=== PATIENT | male | born 1955 | race Caucasian/White ===

== ENCOUNTER 2017-11-28 11:21 | Day surgery (SDC) | payer OTHER ==
[~2017-11-28] VITALS: Ht 185.4 cm; Wt 93.2 kg
[~2017-11-28 11:21] MED LIST: Mobic15 MG; PHENY100ER; TAMS.4ER; VENL150ER; VENL75ER; ZOLP5
== END 2017-11-28 14:40 | disposition home or self-care (01) ==
LOC: ORSCSDS 11:21
PROVIDERS: Internal Medicine Gastroenterology
PROC: 0DBN8ZX Excision of Sigmoid Colon, Via Natural or Artificial Opening Endoscopic, Diagnostic (ICD-10-PCS; principal; 2017-11-28 12:45)
PROC: 0DBM8ZX Excision of Descending Colon, Via Natural or Artificial Opening Endoscopic, Diagnostic (ICD-10-PCS; principal; 2017-11-28 12:45)
PROC: 0DBK8ZX Excision of Ascending Colon, Via Natural or Artificial Opening Endoscopic, Diagnostic (ICD-10-PCS; principal; 2017-11-28 12:45)
PROC: 0DBP8ZX Excision of Rectum, Via Natural or Artificial Opening Endoscopic, Diagnostic (ICD-10-PCS; principal; 2017-11-28 12:45)
PROC: 0DBL8ZX Excision of Transverse Colon, Via Natural or Artificial Opening Endoscopic, Diagnostic (ICD-10-PCS; principal; 2017-11-28 12:45)
DX: Z12.11 Encounter for screening for malignant neoplasm of colon (principal); D12.2 Benign neoplasm of ascending colon; D12.3 Benign neoplasm of transverse colon; D12.4 Benign neoplasm of descending colon; K63.5 Polyp of colon; K62.1 Rectal polyp; K64.8 Other hemorrhoids; Z86.73 Personal history of transient ischemic attack (TIA), and cerebral infarction without residual deficits; F32.9 Major depressive disorder, single episode, unspecified; F17.210 Nicotine dependence, cigarettes, uncomplicated; Z79.899 Other long term (current) drug therapy
CPT/HCPCS: 88305; J1980; J7040; J7120

== ENCOUNTER 2018-09-06 17:43 | Observation (INO) | payer OTHER ==
[~2018-09-06] VITALS: Ht 188 cm; Wt 100.7 kg
[~2018-09-06 17:43] MED LIST changes: -TAMS.4ER; +TAMS.4ER PO
[2018-09-06 18:21] LABS: BASOPHILS ABSOLUTE AUTO 0.06 K/mm3 (0.00-0.23); BASOPHILS PERCENT AUTO 1 % (0-2); EOSINOPHILS ABSOLUTE AUTO 0.32 K/mm3 (0.00-0.68); EOSINOPHILS PERCENT AUTO 4 % (0-6); Hematocrit 43.5 % (37.0-53.0); Hemoglobin 14.8 g/dL (13.5-17.5); IMMATURE GRAN ABSOLUTE AUTO 0.02 K/mm3 (0.00-0.10); IMMATURE GRAN PERCENT AUTO 0 % (0-1); LYMPHOCYTES ABSOLUTE AUTO 3.14 K/mm3 (0.84-5.20); LYMPHOCYTES PERCENT AUTO 40 % (21-46); MONOCYTES ABSOLUTE AUTO 0.61 K/mm3 (0.16-1.47); MONOCYTES PERCENT AUTO 8 % (4-13); Mean Corpuscular HGB 31.7 pg (26.0-34.0); Mean Corpuscular Volume 93 fL (80-100); Mean Platelet Volume 10.4 fL (9.1-12.4); NEUTROPHILS ABSOLUTE AUTO 3.71 K/mm3 (1.96-9.15); NEUTROPHILS PERCENT AUTO 47 % (41-73); Platelet Count 327 K/mm3 (150-400); RDW Coefficient Variation 11.9 % (11.7-14.2); RDW Standard Deviation 40.8 fL (35.1-46.3); Red Blood Cell Count 4.67 M/mm3 (4.30-5.90); White Blood Cell Count 7.86 K/mm3 (4.00-11.30)
[2018-09-06 18:47] LABS: Alanine Aminotransfer (ALT/SGP 84 U/L (12-78); Albumin, Blood 3.8 g/dL (3.4-5.0); Albumin/Globulin Ratio 0.9 (0.8-1.8); Alk Phos 87 U/L (50-136); Anion Gap 9 mmol/L (6-16); Aspartate Aminotrans (AST/SGOT 49 U/L (12-37); Bilirubin, Total 0.3 mg/dL (0.1-1.0); Blood Urea Nitrogen 10 mg/dL (8-24); Bun/Creatinine Ratio 9.6 (12.0-20.0); CO2, Blood 20 mmol/L (21-32); Calcium, Blood 8.7 mg/dL (8.5-10.1); Chloride, Blood 108 mmol/L (98-108); Creatinine, Blood 1.04 mg/dL (0.60-1.20); Globulin, Blood 4.1 g/dL (2.2-4.0); Glomerular Filtration Rate >60 (60-); Glucose, Blood 96 mg/dL (70-99); Sodium, Blood 137 mmol/L (136-145); Total Protein, Blood 7.9 g/dL (6.4-8.2); Troponin I <0.015 ng/mL (0.000-0.040)
[2018-09-06] MEDS ORDERED: BACL10 PO (21:37)
[2018-09-06 23:00] LABS: D-Dimer, Quantitative 0.19 mg/L FEU (0.00-0.52); International Normalized Ratio 1.03; Prothrombin Time Results 10.9 Sec (9.7-11.5)
[2018-09-07 00:36] LABS: U Amphetamine Screen Not Detected; U Barbituate Screen Not Detected; U Benzodiazapine Screen Not Detected; U Buprenorphine Screen Not Detected; U Cannabinoids Screen Not Detected; U Cocaine Screen Not Detected; U Methadone Screen Not Detected; U Methamphetamine Screen Not Detected; U Opiates Screen DETECTED; U Oxycodone Screen Not Detected; U Phencyclidine Screen Not Detected; U Propoxyphene Screen Not Detected
[2018-09-07 05:37] LABS: Hematocrit 40.4 % (37.0-53.0); Hemoglobin 13.8 g/dL (13.5-17.5); Mean Corpuscular HGB 31.5 pg (26.0-34.0); Mean Corpuscular HGB Conc 34.2 g/dL (31.5-36.5); Mean Corpuscular Volume 92 fL (80-100); Mean Platelet Volume 10.5 fL (9.1-12.4); Platelet Count 276 K/mm3 (150-400); RDW Coefficient Variation 12.2 % (11.7-14.2); Red Blood Cell Count 4.38 M/mm3 (4.30-5.90); White Blood Cell Count 9.23 K/mm3 (4.00-11.30)
[2018-09-07 06:06] LABS: Alanine Aminotransfer (ALT/SGP 76 U/L (12-78); Albumin, Blood 3.5 g/dL (3.4-5.0); Alk Phos 79 U/L (50-136); Anion Gap 6 mmol/L (6-16); Aspartate Aminotrans (AST/SGOT 39 U/L (12-37); Bilirubin, Total 0.9 mg/dL (0.1-1.0); Blood Urea Nitrogen 13 mg/dL (8-24); Bun/Creatinine Ratio 13.2 (12.0-20.0); CO2, Blood 24 mmol/L (21-32); Calcium, Blood 8.4 mg/dL (8.5-10.1); Chloride, Blood 108 mmol/L (98-108); Creatinine, Blood 0.99 mg/dL (0.60-1.20); Globulin, Blood 3.6 g/dL (2.2-4.0); Glomerular Filtration Rate >60 (60-); Glucose, Blood 93 mg/dL (70-99); Potassium, Blood 3.7 mmol/L (3.5-5.5); Sodium, Blood 138 mmol/L (136-145); Total Protein, Blood 7.1 g/dL (6.4-8.2)
--- NOTE | 2018-09-07 06:09 | NUR ---
SHIFT SUMMARY PT NEW ADMIT THIS SHIFT. AAOX4. DISCOMFORT TO LUE CONTROLLED WITH X1 25mcg FENTANYL. NO NAUSEA/EMESIS. HEPARIN GTT STARTED PER PHARMACY, AWAITING PTT RESULTS THIS AM. PT SBA UP IN ROOM TO AMBULATE. ORIENTED TO ROOM + CALL LIGHT USE.
--- NOTE | 2018-09-07 08:35 | NUR ---
ECHO REPORTED TO BE COMPLETE.
--- NOTE | 2018-09-07 08:49 | NUR ---
DR ROSS HERE TO SEE PT.
--- NOTE | 2018-09-07 11:23 | NUR ---
ECHOCARDIOGRAM COMPLETED
--- NOTE | 2018-09-07 14:19 | NUR ---
RECENTLY DISCUSSED HEPARIN GTT WITH PHARMACY, RATE CHANGED PER ORDER.
--- NOTE | 2018-09-07 17:08 | NUR ---
PT TO BATHROOM AND BACK TO BED ON HIS OWN. PT BACK IN BED RESTING AT THIS TIME.
--- NOTE | 2018-09-07 18:08 | NUR ---
SHIFT SUMMARY PT A/O. EATING / DRINKING WELL. VOIDING ON OWN IN BATHROOM. UP IND. ASSISTED WITH ADL'S PRN. MEDICATED FOR PAIN PRN. FAMILY IN TO SEE PT TODAY.
--- NOTE | 2018-09-07 18:50 | NUR ---
HEPARIN DC'D AT THIS TIME PER ORDER. SALINE LOCKED.
--- NOTE | 2018-09-08 00:15 | NUR ---
PT GOING TO IMAGING VIA HWEELCHAIR FOR ORDERED CHEST CT WITH CONTRAST.
--- NOTE | 2018-09-08 04:51 | NUR ---
SHIFT SUMMARY: PT HAS DONE WELL THIS SHIFT. DENIES CP AND SOB. TELE SHOWS NSR. HELD SCHED METOPROLOL FOR HR LESS THAN 60. NEW IV IN RIGHT UPPER ARM. PT TAKEN TO IMAGING FOR CHEST CT WITH CONTRAST TO R/O PE. CONTINUOUS HEPARIN INFUSING. GIVEN ULTRAM AND FENTANYL FOR PAIN. PLAN FOR MRI OF RIGHT SHOULDER THIS AM.
[2018-09-08 05:04] LABS: Hematocrit 40.5 % (37.0-53.0); Hemoglobin 13.6 g/dL (13.5-17.5); Mean Corpuscular HGB 31.3 pg (26.0-34.0); Mean Corpuscular HGB Conc 33.6 g/dL (31.5-36.5); Mean Corpuscular Volume 93 fL (80-100); Mean Platelet Volume 10.8 fL (9.1-12.4); Platelet Count 277 K/mm3 (150-400); RDW Standard Deviation 41.8 fL (35.1-46.3); Red Blood Cell Count 4.34 M/mm3 (4.30-5.90); White Blood Cell Count 7.19 K/mm3 (4.00-11.30)
[2018-09-08 05:35] LABS: Albumin, Blood 3.3 g/dL (3.4-5.0); Anion Gap 6 mmol/L (6-16); Blood Urea Nitrogen 17 mg/dL (8-24); Bun/Creatinine Ratio 16.8 (12.0-20.0); CO2, Blood 25 mmol/L (21-32); Calcium, Blood 8.7 mg/dL (8.5-10.1); Chloride, Blood 109 mmol/L (98-108); Creatinine, Blood 1.01 mg/dL (0.60-1.20); Glomerular Filtration Rate >60 (60-); Glucose, Blood 96 mg/dL (70-99); Phosphorus, Blood 4.2 mg/dL (2.5-4.9); Potassium, Blood 4.3 mmol/L (3.5-5.5); Sodium, Blood 140 mmol/L (136-145)
--- NOTE | 2018-09-08 18:16 | NUR ---
SHIFT SUMMARY PT HAS DONE WELL TODAY. MRI COMPLETED. HEPARIN DRIP D/C'D. 1ST PART OF STRESS TEST COMPLETED. PLAN FOR 2ND PART TOMORROW AFTERNOON. PT HAS NOT C/O CP TODAY BUT DOES /O SIGNIFICANT PAIN IN RUE/SHOULDER. ORTHO MD INTO SEE PT TO DISCUSS MRI RESULTS. PLAN TO WORK WITH THERAPY TOMORROW.
--- NOTE | 2018-09-08 22:50 | NUR ---
HELD LOPRESSOR TONIGHT DUE TO HEART RATE OF 53 PER TELE.I CALLED HOSPITALIST [facility]OM[facility] TO CONFIRM IF HE WANTED IT HELD TONIGHT.DISCUSSED VS AND TROP. CONFIRMED HE WANTS LOPRESSOR HELD TONIGHT.
[2018-09-09 05:31] LABS: Albumin, Blood 3.4 g/dL (3.4-5.0); Anion Gap 6 mmol/L (6-16); Blood Urea Nitrogen 16 mg/dL (8-24); Bun/Creatinine Ratio 17.7 (12.0-20.0); CO2, Blood 24 mmol/L (21-32); Calcium, Blood 8.8 mg/dL (8.5-10.1); Chloride, Blood 107 mmol/L (98-108); Glomerular Filtration Rate >60 (60-); Glucose, Blood 86 mg/dL (70-99); Phosphorus, Blood 3.9 mg/dL (2.5-4.9); Potassium, Blood 4.2 mmol/L (3.5-5.5); Sodium, Blood 137 mmol/L (136-145)
--- NOTE | 2018-09-09 07:35 | NUR ---
SUMMARY PT PENDING SECOND HALF OF STRESS TEST TODAY. NO C/O CHEST PAIN LAST NIGHT. MOST OF PT CONCERN IS WITH R ROTATOR CUFF WILL BE FOLLOWING WITH DR DE LA ROSA IN 14 DAYS AND PT IS R HANDED.
[2018-09-09] MEDS ORDERED: MELATONIN5 M1 PO (18:41)
[2018-09-09] MEDS ORDERED: PANT20 PO (18:41)
[2018-09-09] MEDS ORDERED: SERT25 PO (18:42)
[2018-09-09] MEDS ORDERED: TRAM50 PO (18:42)
[2018-09-09] MEDS ORDERED: DOCU100 PO (18:43)
--- NOTE | 2018-09-09 19:01 | NUR ---
[facility] CALLED TO SAVE ON IN BYERS PER PT REQUEST. PAIN WELL CONTROLLED, CLEARED THERAPY, STRESS TEST WNL. SCRIPT FOR ULTRAM GIVEN.
== END 2018-09-09 19:20 | disposition home or self-care (01) ==
LOC: ER 17:43 → SURS 17:44 → EDBEDREQ 22:11 → SURS 22:20
PROVIDERS: Internal Medicine; Physician Assistant; ADMIT Internal Medicine
DX: K20.9 Esophagitis, unspecified (principal); S46.011A Strain of muscle(s) and tendon(s) of the rotator cuff of right shoulder, initial encounter; M19.011 Primary osteoarthritis, right shoulder; R55 Syncope and collapse; G47.00 Insomnia, unspecified; F32.9 Major depressive disorder, single episode, unspecified; M54.9 Dorsalgia, unspecified; G89.29 Other chronic pain; Z79.899 Other long term (current) drug therapy; Z63.4 Disappearance and death of family member; X50.9XXA Other and unspecified overexertion or strenuous movements or postures, initial encounter
CPT/HCPCS: 36415; 71046; 71260; 73030; 73221; 78452; 80053; 80069; 83880; 84484; 85025; 85027; 85379; 85610; 85730; 93005; 93010; 93017; 93306; 96374; 96375; 96376; 97110; 97162; 97530; 99285-25; A9500; G0378; J0280; J1644; J1885; J2270; J2785; J3010; J7040; Q9967

== ENCOUNTER 2018-10-29 06:20 | Day surgery (SDC) | payer OTHER ==
[~2018-10-29] VITALS: Ht 185.4 cm; Wt 105.0 kg
[~2018-10-29 06:20] MED LIST changes: +BACL10 PO; +DOCU100 PO; +MELATONIN5 M1 PO; +PANT20 PO; +SERT25 PO; +TRAM50 PO
[2018-10-29] MEDS ORDERED: ASPI81CH PO (06:39)
[2018-10-29] MEDS ORDERED: METO25ER PO (06:39)
--- NOTE | 2018-10-29 11:37 | NUR ---
Pt preparing to go home stable, pt with tr-band removed, dot cloth appied at 1130. Reviewed pt medication and discharge instructions.
--- NOTE | 2018-10-29 11:54 | NUR ---
1150 Pt d/c home with daughter. Pt a/o with decrease pain in right shoulder. Pt with no site pain on right radial. Pt stable for d/c home.
== END 2018-10-29 11:50 | disposition home or self-care (01) ==
LOC: MHTC 06:20
DX: I25.110 Atherosclerotic heart disease of native coronary artery with unstable angina pectoris (principal); I25.2 Old myocardial infarction; J44.9 Chronic obstructive pulmonary disease, unspecified; F32.9 Major depressive disorder, single episode, unspecified; F41.9 Anxiety disorder, unspecified; F17.210 Nicotine dependence, cigarettes, uncomplicated; E66.9 Obesity, unspecified; Z86.73 Personal history of transient ischemic attack (TIA), and cerebral infarction without residual deficits; Z79.899 Other long term (current) drug therapy; Z79.82 Long term (current) use of aspirin
CPT/HCPCS: 93454; 99152; 99153; C1769; C1894; J1644; J2250; J3010; J7030; Q9967

== ENCOUNTER 2019-01-11 11:59 | Emergency (ER) | payer OTHER ==
[~2019-01-11] VITALS: Ht 185.4 cm; Wt 104.3 kg
[~2019-01-11 11:59] MED LIST changes: +ASPI81CH PO; +METO25ER PO
== END 2019-01-11 13:47 | disposition home or self-care (01) ==
LOC: ER 11:59
DX: S61.212A Laceration without foreign body of right middle finger without damage to nail, initial encounter (principal); W22.8XXA Striking against or struck by other objects, initial encounter; Z79.899 Other long term (current) drug therapy; Z79.82 Long term (current) use of aspirin; F32.9 Major depressive disorder, single episode, unspecified; Z86.73 Personal history of transient ischemic attack (TIA), and cerebral infarction without residual deficits; G47.00 Insomnia, unspecified; F17.200 Nicotine dependence, unspecified, uncomplicated
CPT/HCPCS: 12002; 73140; 99282-25

== ENCOUNTER 2024-01-23 23:13 | Emergency (ER) | payer OTHER ==
[~2024-01-23] VITALS: Ht 185.4 cm; Wt 102.1 kg
[2024-01-24] MEDS ORDERED: Dexamethasone Sod Phos 10 MG/ML 1ML VIAL IV ONE (01:00)
[2024-01-24] MEDS ORDERED: Ketorolac Tromethamine 30mg Vial IV ONE (01:00)
[2024-01-24 01:17] LABS: BASOPHILS PERCENT AUTO 1 % (0-2); EOSINOPHILS ABSOLUTE AUTO 0.37 K/mm3 (0.00-0.68); EOSINOPHILS PERCENT AUTO 5 % (0-6); Hematocrit 45.9 % (37.0-53.0); IMMATURE GRAN ABSOLUTE AUTO 0.01 K/mm3 (0.00-0.10); IMMATURE GRAN PERCENT AUTO 0 % (0-1); LYMPHOCYTES ABSOLUTE AUTO 3.68 K/mm3 (0.84-5.20); LYMPHOCYTES PERCENT AUTO 45 % (21-46); MONOCYTES ABSOLUTE AUTO 0.64 K/mm3 (0.16-1.47); MONOCYTES PERCENT AUTO 8 % (4-13); Mean Corpuscular HGB 30.9 pg (26.0-34.0); Mean Corpuscular HGB Conc 34.9 g/dL (31.5-36.5); Mean Corpuscular Volume 89 fL (80-100); Mean Platelet Volume 9.4 fL (9.1-12.4); NEUTROPHILS ABSOLUTE AUTO 3.32 K/mm3 (1.96-9.15); NEUTROPHILS PERCENT AUTO 41 % (41-73); Platelet Count 434 K/mm3 (150-400); RDW Coefficient Variation 12.4 % (11.7-14.2); RDW Standard Deviation 40.4 fL (35.1-46.3); Red Blood Cell Count 5.18 M/mm3 (4.30-5.90); White Blood Cell Count 8.12 K/mm3 (4.00-11.30)
[2024-01-24 04:13] LABS: Albumin, Blood 3.5 g/dL (3.4-5.0); Bilirubin, Total 0.2 mg/dL (0.1-1.0); Bun/Creatinine Ratio 9.6 (12.0-20.0); Calcium, Blood 9.1 mg/dL (8.5-10.1); Creatinine, Blood 0.93 mg/dL (0.60-1.20); Globulin, Blood 3.5 g/dL (2.2-4.0); Potassium, Blood 3.5 mmol/L (3.5-5.5)
[2024-01-24 13:27] VITALS: BP 159/94
[2024-01-24] MEDS ORDERED: Acetaminophen 325 MG TABLET PO ONE (14:20)
[2024-01-24 14:32] LABS: Source, Urine Clean Catch
[2024-01-24 14:40] LABS: Appearance, Urine Clear (Clear); Bilirubin, Urine Neg (Neg); Blood, Urine Neg (Neg); Color, Urine Yellow (P-Yellow); Glucose Qualitative, Urine Neg (Neg); Ketones, Urine Neg (Neg); Leukocyte Esterase, Urine Neg (Neg); Nitrite, Urine Neg (Neg); Protein, Urine 2+ (Neg); Urobilinogen, Urine 1+ (Normal)
[2024-01-24 14:48] LABS: Amorphous Light (0-Heavy); Bacteria Rare /hpf; Red Blood Cells, Urine Not Seen /hpf (0-2); Squamous Epithelial Cells Rare /hpf (Few); White Blood Cells, Urine Not Seen /hpf (0-5)
== END 2024-01-24 16:26 | disposition home or self-care (01) ==
LOC: ER 23:13
PROVIDERS: Emergency Medicine; Student in an Organized Health Care Education/Training Program
DX: S32.019A Unspecified fracture of first lumbar vertebra, initial encounter for closed fracture (principal); R32 Unspecified urinary incontinence; M54.16 Radiculopathy, lumbar region; N50.812 Left testicular pain; F17.200 Nicotine dependence, unspecified, uncomplicated; W01.0XXA Fall on same level from slipping, tripping and stumbling without subsequent striking against object, initial encounter; Z79.82 Long term (current) use of aspirin; Z79.899 Other long term (current) drug therapy
CPT/HCPCS: 51798; 72158; 74177; 76870; 80053; 81001; 85025; 96374; 96375; 99284-25; A9270; A9579; J1100; J1885; Q9967

== ENCOUNTER 2024-09-25 09:25 | Emergency (ER) | payer MEDICARE, OTHER ==
[~2024-09-25] VITALS: Ht 188 cm; Wt 86.2 kg
[2024-09-25 09:56] LABS: BASOPHILS ABSOLUTE AUTO 0.16 K/mm3 (0.00-0.23); BASOPHILS PERCENT AUTO 2 % (0-2); EOSINOPHILS ABSOLUTE AUTO 0.54 K/mm3 (0.00-0.68); EOSINOPHILS PERCENT AUTO 5 % (0-6); Hematocrit 41.6 % (37.0-53.0); Hemoglobin 14.4 g/dL (13.5-17.5); IMMATURE GRAN ABSOLUTE AUTO 0.06 K/mm3 (0.00-0.10); IMMATURE GRAN PERCENT AUTO 1 % (0-1); LYMPHOCYTES ABSOLUTE AUTO 3.93 K/mm3 (0.84-5.20); LYMPHOCYTES PERCENT AUTO 36 % (21-46); MONOCYTES PERCENT AUTO 8 % (4-13); Mean Corpuscular HGB 30.8 pg (26.0-34.0); Mean Corpuscular HGB Conc 34.6 g/dL (31.5-36.5); Mean Corpuscular Volume 89 fL (80-100); Mean Platelet Volume 9.6 fL (9.1-12.4); NEUTROPHILS ABSOLUTE AUTO 5.26 K/mm3 (1.96-9.15); NEUTROPHILS PERCENT AUTO 48 % (41-73); Platelet Count 481 K/mm3 (150-400); RDW Coefficient Variation 12.8 % (11.7-14.2); RDW Standard Deviation 41.7 fL (35.1-46.3); Red Blood Cell Count 4.67 M/mm3 (4.30-5.90); White Blood Cell Count 10.85 K/mm3 (4.00-11.30)
[2024-09-25 10:10] LABS: Albumin, Blood 3.6 g/dL (3.4-5.0); Albumin/Globulin Ratio 1.1 (0.8-1.8); Bilirubin, Total 0.1 mg/dL (0.1-1.0); Bun/Creatinine Ratio 29.3 (12.0-20.0); Calcium, Blood 8.8 mg/dL (8.5-10.1); Creatinine, Blood 0.79 mg/dL (0.60-1.20); Globulin, Blood 3.4 g/dL (2.2-4.0); Potassium, Blood 3.8 mmol/L (3.5-5.5)
[2024-09-25 12:07] VITALS: BP 157/84
== END 2024-09-25 12:30 | disposition home or self-care (01) ==
LOC: ER 09:25
PROVIDERS: Emergency Medicine
DX: M66.822 Spontaneous rupture of other tendons, left upper arm (principal); G47.00 Insomnia, unspecified; F17.200 Nicotine dependence, unspecified, uncomplicated; Z86.73 Personal history of transient ischemic attack (TIA), and cerebral infarction without residual deficits; Z79.82 Long term (current) use of aspirin; Z79.899 Other long term (current) drug therapy
CPT/HCPCS: 71046; 73030; 80053; 84484; 85025; 93005; 93010; 99284-25

== ENCOUNTER 2025-04-19 14:22 | Emergency (ER) | payer MEDICARE, OTHER ==
[~2025-04-19] VITALS: Ht 182.9 cm; Wt 81.7 kg
[2025-04-19] MEDS ORDERED: CEPH500 PO (15:45)
== END 2025-04-19 16:21 | disposition home or self-care (01) ==
LOC: ER 14:22
DX: L02.414 Cutaneous abscess of left upper limb (principal); G47.00 Insomnia, unspecified; F17.200 Nicotine dependence, unspecified, uncomplicated; Z86.73 Personal history of transient ischemic attack (TIA), and cerebral infarction without residual deficits; Z79.82 Long term (current) use of aspirin; Z79.899 Other long term (current) drug therapy
CPT/HCPCS: 10060; 99282-25